=== PATIENT | female | born 1995 ===

== ENCOUNTER → 2021-10-05 13:26 | Outpatient (CLI) | payer OTHER, SELFPAY ==
--- NOTE | 2021-10-05 13:52 | DI.ECHO.S_ITS ---
:Reason For Study: CHEST PAIN : :Ordering Physician: CODEY : :PELON Performed By: Desiree Astudillo : :Referring: ZACKERY ALEGRE : + + Interpretation Summary The patient was in sinus rhythm with heart rates between 73-94 bpm during the exam. The left ventricle is normal in size and wall thickness. The ejection fraction is estimated to be 60-65%. No significant valvular disease Normal right sided pressures. No prior study for comparison. Procedure: A two-dimensional transthoracic echocardiogram with color flow and Doppler was performed. The study quality was technically good. There is no prior echocardiogram noted for this patient. The patient was in sinus rhythm with heart rates between 73-94 bpm during the exam. Left Ventricle: The left ventricle is normal in size and wall thickness. The ejection fraction is estimated to be 60-65%. Diastolic parameters suggest probable normal left ventricular diastolic function and normal filling pressures. Right Ventricle: The right ventricle is normal in size and function. Atria: The left atrial size is normal. Right atrial size is normal. There is no Doppler evidence for an interatrial shunt. Mitral Valve: The mitral valve is normal in structure and function. There is no mitral regurgitation noted. Aortic Valve: The aortic valve is trileaflet. The aortic valve opens well. There is no aortic valve stenosis. No aortic regurgitation is present. Tricuspid Valve: The tricuspid valve is normal in structure and function. There is trace tricuspid regurgitation. Pulmonic Valve: The pulmonic valve is not well seen, but is grossly normal. There is no pulmonic valvular regurgitation. Great Vessels: The aortic root is normal size. The dimensions of the ascending aorta are normal. The IVC is of normal diameter and collapses greater than 50% with a sniff. This suggests a low right atrial pressure of 3 mm Hg. Pericardium/ Pleura There is no pericardial effusion. There is no pleural effusion. MMode/2D Measurements & Calculations LVIDd: 4.0 cm LVOT diam: 1.9 cm LVIDs: 2.6 cm Ao root diam: 2.4 cm FS: 33.9 % asc Aorta Diam: 2.5 cm IVSd: 0.71 cm Ao Arch Diam (Prox Trans): 2.3 cm LVPWd: 0.76 cm LV sandoval. diameter/BSA (cm/m^2): 2.5 LV sys. diameter/BSA (cm/m^2): 1.7 LA A2 area: 16.1 cm2 RA long axis: 4.3 cm LA A4 area: 13.9 cm2 RA area: 11.2 cm2 LA length (vol): 4.5 cm RA vol: 24.9 ml LA vol: 42.1 ml RA : 15.6 ml/m2 LA vol index: 26.4 ml/m2 IVC diam: 1.1 cm RVD1 (basal): 3.3 cm RVD2 (mid): 3.0 cm TAPSE: 2.0 cm Doppler Measurements & Calculations Ao V2 max: 128.8 cm/sec LVOT Max Rian: 99.4 cm/sec Ao V2 mean: 93.6 cm/sec LV V1 max P.9 mmHg Ao max P.6 mmHg LV V1 VTI: 21.9 cm Ao mean P.0 mmHg TERA(I,D): 2.3 cm2 Ao V2 VTI: 26.0 cm TERA(V,D): 2.1 cm2 sev ratio: 0.84 TERA indexed to BSA (cm^2/m^2): 1.5 MV E max rian: 87.6 cm/sec PA V2 max: 95.1 cm/sec MV A max rian: 75.7 cm/sec PA V2 mean: 64.2 cm/sec MV E/A: 1.2 PA mean P.0 mmHg Med Peak E' Rian: 11.9 cm/sec PA pr(Accel): 25.9 mmHg E/E' med: 7.4 Lat Peak E' Rian: 18.5 cm/sec E/E' lat: 4.7 E/e' average: 6.1 MV dec time: 0.15 sec SV(LVOT): 60.4 ml Reading Physician:JUDITH
--- NOTE | 2021-10-05 15:24 | PM.TREADMILL ---
Cardiac Stress Test Report Referral & Results Date Patient Seen: 10/05/21 Time Patient Seen: 15:24 Requesting provider: Pelon Sebastian Indication: Chest pain Rest ECG: sinus rhythm Procedure Note: Standard Yonathan protocol, 8:02 mins, 8.1 METS Reduced exercise capacity, RYLAN +21% Accelerated heart rate response to minimal exertion. Normal hemodynamic response to exercise No chest pain or anginal symptoms. No significant ST changes at peak exercise No ectopy Test stopped due to leg fatigue and patient request to stop Impression: Normal exercise stress test Please note: Actual ECG tracings can be found in the PACS system.
--- NOTE | 2021-10-05 20:23 | DI.NM.S_ITS ---
DATE OF SERVICE: 10/05/2021 PROCEDURE PERFORMED: Exercise treadmill stress test without imaging. ORDERING PROVIDER: Dr. Pelon Sebastian. INDICATIONS: The patient is a 25-year-old female with atypical chest discomfort and palpitations. FINDINGS: 1. The patient was able to exercise for 8 minutes 2 seconds on a standard Yonathan protocol, suggesting moderately reduced exercise capacity with an RYLAN of +21%, achieving 10.1 METs. 2. She had a somewhat accelerated heart rate response to exercise with a resting heart rate of 91 BPM, increasing to 130 BPM after 3 minutes of exercise and achieving a maximum heart rate of 183 BPM (94% of her predicted maximum). She had a normal blood pressure response. 3. She had no chest discomfort or anginal symptoms and stopped because of generalized fatigued. 4. The resting ECG shows sinus rhythm with normal ST segments. With stress, there were no ST-segment shifts or arrhythmias. She had a gradual recovery of her sinus tachycardia in recovery. IMPRESSION: 1. Normal exercise treadmill stress test for ischemia. 2. Moderately impaired exercise capacity with an accelerated heart rate response to exercise but no angina or arrhythmias. Berenice Oneal - /fn/lc doc#: [id number]/job#: [id number] dd: 10/05/2021 16:27:00 dt: 10/05/2021 18:39:00 DICTATING MD/COPIES TO: Roger Wilkerson MD; Dr. Walker Sebastian COPIES MNE: ALISTAIR; ; Dr. Walker Sebastian
== END ==
PROVIDERS: PCP Family Medicine
DX: R07.89 Other chest pain (principal); R00.2 Palpitations
CPT/HCPCS: 93017; 93306

== ENCOUNTER 2021-10-07 18:57 | Emergency (ER) | payer OTHER, SELFPAY ==
[2021-10-07 18:59] VITALS: BP 135/76; PULSE 68; RESP 20; TEMP 36.6; O2SAT 98
== END 2021-10-07 21:20 | disposition left against medical advice (07) ==
PROVIDERS: Emergency Provider Emergency Medicine; PCP Family Medicine
CPT/HCPCS: 99281

== ENCOUNTER 2021-12-17 10:26 | Emergency (ER) | payer OTHER, SELFPAY ==
[2021-12-17 10:30] VITALS: BP 146/86; PULSE 60; RESP 15; TEMP 37.3; O2SAT 99; BMI 25.4
--- NOTE | 2021-12-17 10:33 | DI.RAD.S_ITS ---
PROCEDURE: XR CHEST 1V INDICATIONS: chest pain TECHNIQUE: One view of the chest was acquired. COMPARISON: None. FINDINGS: Surgical changes and devices: None. Lungs and pleura: Lungs are clear. No pleural effusions or pneumothorax. Mediastinum: Mediastinal contours appear normal. Heart size is normal. Bones and chest wall: No suspicious bony lesions. Overlying soft tissues appear unremarkable. IMPRESSION: No acute cardiopulmonary abnormality. Dictated by: Miguel Corral M.D. on 12/17/2021 at 11:11 Approved by: Miguel Corral M.D. on 12/17/2021 at 11:12
[2021-12-17 10:52] LABS: Add Manual Diff / Slide Review NO; Basophils Absolute Auto 0 /uL (0-100); Basophils Percent Auto 0.2 % (0-2); Eosinophils Absolute Auto 200 /uL (0-450); Eosinophils Percent Auto 1.7 % (2-4); Hematocrit 39.2 % (36-46); Hemoglobin 13.7 g/dL (12.0-16.0); Lymphocytes Absolute Auto 2300 /uL (1100-4500); Lymphocytes Percent Auto 23.2 % (25-40); Mean Corpuscular HGB Conc 34.9 % (30-36); Mean Corpuscular Hemoglobin 28.7 PG (26-34); Mean Corpuscular Volume 82.4 fL (80-100); Monocytes Absolute Auto 600 /uL (0-900); Monocytes Percent Auto 6.5 % (3-14); Neutrophils Absolute Auto 6700 /uL (1500-7000); Neutrophils Percent Auto 68.4 % (50-75); Platelet Count 191 X10^3/uL (150-400); Red Blood Cell Count 4.76 X10^6/uL (4.0-5.2); Red Cell Distribution Width 12.8 % (11.6-14.8); White Blood Cell Count 9.8 X10^3/uL (4.5-11.0)
[2021-12-17 11:11] VITALS: PULSE 79; RESP 24; O2SAT 100
[2021-12-17 11:19] LABS: HCG Quantitative /Beta subunit < 2.4 mIU/mL
[2021-12-17 11:27] VITALS: BP 119/70; PULSE 64; RESP 20; O2SAT 100
[2021-12-17 11:30] VITALS: BP 111/64; PULSE 59; RESP 21; O2SAT 100
--- NOTE | 2021-12-17 11:35 | ED.CHESTPAIN ---
HPI - Chest Pain General Chief Complaint: Chest Pain Stated Complaint: SOB, chest tightness x 3 days Time Seen by Provider: 12/17/21 11:33 Source: patient Mode of arrival: Ambulatory Limitations: no limitations History of Present Illness HPI narrative: Patient is a 26-year-old female history of paroxysmal supraventricular tachycardia taking metoprolol. Presents today with increased fatigue some left-sided chest discomfort and arm pain. She that part before. However she is having she breath which is new. She has some mild shortness breath with exertion. She denies any orthopnea. No fever or cough. Been ongoing for the last 3 days. She says it is just not getting any better. Related Data Allergies Allergy/AdvReac Type Severity Reaction Status Date / Time No Known Drug Allergies Allergy Verified 12/17/21 10:34 Review of Systems Review of Systems Narrative: GENERAL: Denies chills, fatigue, malaise, fever, sweats, travel HEENT: Denies sinus pain, ear pain, sore throat, difficulty swallowing, neck pain RESPIRATORY: See HPI CARDIOVASCULAR: See HPI GASTROINTESTINAL: Denies nausea, vomiting, abdominal pain, diarrhea, constipation, melena. : Denies dysuria, frequency, incontinence, hematuria, urinary retention, flank pain. MUSCULOSKELETAL: Denies weakness, joint pain, or bony pain SKIN: No rash, no erythema, no pruritus NEUROLOGIC: Denies weakness, dizziness, headache, numbness, change in speech, confusion PSYCHIATRIC: No concerning psychosocial issues. 12 point review of systems is negative except for those stated above and HPI Patient History Social History Smoking Status: Unknown if ever smoked Smoking Status: Unknown if ever smoked alcohol intake frequency: holidays/special occasions only Substance Use Type: does not use Exam Initial Vital Signs Initial Vital Signs: Vital Signs Temperature 99.2 F 12/17/21 10:30 Pulse Rate 60 12/17/21 10:30 Respiratory Rate 15 12/17/21 10:30 Blood Pressure 146/86 H 12/17/21 10:30 Pulse Oximetry 99 12/17/21 10:30 Oxygen Delivery Method 12/17/21 10:30 GENERAL: Alert pleasant 26-year-old female no acute distress HEENT: Head atraumatic,EOMI, pupils reactive, face symmetric, moist mucous membranes CARDIOVASCULAR: Regular rate and rhythm without murmurs, rubs or gallops. RESPIRATORY: Breath sounds equal bilaterally, no wheezes rales or rhonchi. ABDOMEN: Soft, nontender. Normoactive bowel sounds all 4 quadrants. No guarding or rebound. EXTREMITIES: Normal range of motion, no clubbing or edema. Neurovascularly intact NEUROLOGICAL: Alert and oriented x4.Normal gait and speech. SKIN: Warm, dry, no laceration, no petechiae, no rashes or lesions. Scores HEART Score Heart Score history: Slightly Suspicious Heart Score EKG: Normal Heart Score Age: < 45 years old Heart Score risk factors: No known risk factors Heart Score troponin: < or = to normal limit Heart Score Total: 0 PERC Score Age greater than or equal to 50 years: No Heart rate greater than or equal to 100 bpm: No Room Air O2 Sat less than 95%: No Unilateral leg swelling: No Recent trauma or surgery: No Hemoptysis: No Prior PE or DVT: No Hormone Use: No Total PERC Score: 0 Course Orders Ordered: ED Orders 12/17/21 10:33 XR chest 1V Stat Beta HCG, Quant [HCG Quantitative /Beta subunit] Stat Complete Blood Count AUTO DIFF Stat Comprehensive Metabolic Panel Stat D Dimer Stat Lipase Stat Magnesium Stat Troponin & CK Cardiac Panel Stat 12/17/21 10:39 EKG-12 Lead Stat Vital Signs Vital signs: Vital Signs - 8 hr 12/17/21 10:30 Temperature 99.2 F Pulse Rate 60 Respiratory Rate 15 Blood Pressure 146/86 H Pulse Oximetry 99 Oxygen Delivery Method Room Air MDM - Chest Pain Lab Data Result diagrams: 12/17/21 10:33 12/17/21 10:33 Labs: Lab Results 12/17/21 12/17/21 12/17/21 Range/Units 10:33 10:33 10:33 WBC 9.8 (4.5-11.0) X10^3/uL RBC 4.76 (4.0-5.2) X10^6/uL Hgb 13.7 (12.0-16.0) g/dL Hct 39.2 (36-46) % MCV 82.4 (80-100) fL MCH 28.7 (26-34) PG MCHC 34.9 (30-36) % RDW 12.8 (11.6-14.8) % Plt Count 191 (150-400) X10^3/uL Neut % (Auto) 68.4 (50-75) % Lymph % (Auto) 23.2 L (25-40) % Camp % (Auto) 6.5 (3-14) % Eos % (Auto) 1.7 L (2-4) % Baso % (Auto) 0.2 (0-2) % Neut # (Auto) 6700 (2524-7764) /uL Lymph # (Auto) 2300 (4751-6779) /uL Camp # (Auto) 600 (0-900) /uL Eos # (Auto) 200 (0-450) /uL Baso # (Auto) 0 (0-100) /uL D-Dimer (<500) ng/ml Sodium 137 (137-145) mmol/L Potassium 4.1 (3.4-5.1) mmol/L Chloride 105 (98-107) mmol/L Carbon Dioxide 23 (22-32) mmol/L BUN 12 (7-17) mg/dL Creatinine 0.61 (0.52-1.04) mg/dL Estimated GFR > 60 (>60) mL/min BUN/Creatinine Ratio 19.7 (6-22) Glucose 117 H (70-100) mg/dL Calcium 8.9 (8.4-10.2) mg/dL Magnesium 1.9 (1.6-2.3) mg/dL Total Bilirubin 0.6 (0.2-1.3) mg/dL AST 35 (14-36) IU/L ALT 39 H (<35) IU/L Alkaline Phosphatase 56 (38-126) U/L Total Creatine Kinase 52 (30-135) U/L CK-MB (CK-2) TNP CK-MB (CK-2) Rel Index TNP Troponin I < 0.012 (0.01-0.034) ng/mL Total Protein 7.6 (6.3-8.2) g/dL Albumin 4.4 (3.5-5.0) g/dL Globulin 3.2 (1.7-4.1) g/dL Albumin/Globulin Ratio 1.4 (1.0-2.8) Lipase 45 (23-300) U/L HCG, Quant < 2.4 mIU/mL 12/17/21 Range/Units 10:33 WBC (4.5-11.0) X10^3/uL RBC (4.0-5.2) X10^6/uL Hgb (12.0-16.0) g/dL Hct (36-46) % MCV (80-100) fL MCH (26-34) PG MCHC (30-36) % RDW (11.6-14.8) % Plt Count (150-400) X10^3/uL Neut % (Auto) (50-75) % Lymph % (Auto) (25-40) % Camp % (Auto) (3-14) % Eos % (Auto) (2-4) % Baso % (Auto) (0-2) % Neut # (Auto) (9946-0974) /uL Lymph # (Auto) (5717-3009) /uL Camp # (Auto) (0-900) /uL Eos # (Auto) (0-450) /uL Baso # (Auto) (0-100) /uL D-Dimer < 500 (<500) ng/ml Sodium (137-145) mmol/L Potassium (3.4-5.1) mmol/L Chloride (98-107) mmol/L Carbon Dioxide (22-32) mmol/L BUN (7-17) mg/dL Creatinine (0.52-1.04) mg/dL Estimated GFR (>60) mL/min BUN/Creatinine Ratio (6-22) Glucose (70-100) mg/dL Calcium (8.4-10.2) mg/dL Magnesium (1.6-2.3) mg/dL Total Bilirubin (0.2-1.3) mg/dL AST (14-36) IU/L ALT (<35) IU/L Alkaline Phosphatase (38-126) U/L Total Creatine Kinase (30-135) U/L CK-MB (CK-2) CK-MB (CK-2) Rel Index Troponin I (0.01-0.034) ng/mL Total Protein (6.3-8.2) g/dL Albumin (3.5-5.0) g/dL Globulin (1.7-4.1) g/dL Albumin/Globulin Ratio (1.0-2.8) Lipase (23-300) U/L HCG, Quant mIU/mL Point of Care Testing Test Results Negative Imaging Data Chest x-ray: Radiologist's Impression: Signed Patient: Berenice Oneal MR#: [id number] : 1995 Acct:[id number] Age/Sex: 26 / F Date of Service: 12/17/21 Loc: ED Accession Number: [id number] ?? Procedure: XR chest 1V Ordering Provider: Micheline Verduzco D.O. PROCEDURE:? XR CHEST 1V ? INDICATIONS:? chest pain ? TECHNIQUE:? One view of the chest was acquired.? ? COMPARISON:? None. ? FINDINGS:? ? Surgical changes and devices:? None.? ? Lungs and pleura:? Lungs are clear.? No pleural effusions or pneumothorax.? ? Mediastinum:? Mediastinal contours appear normal.? Heart size is normal.? ? Bones and chest wall:? No suspicious bony lesions.? Overlying soft tissues appear unremarkable.? ? IMPRESSION:? No acute cardiopulmonary abnormality. ? ? Dictated by: Miguel Corral M.D. on 12/17/2021 at 11:11 ? ? ECG Data Interpretation: Sinus rhythm rate 59 NM intervals 174 QRS [address] changes no priors to compare MDM Narrative Medical decision making narrative: Patient overall appears well blood work is reassuring. D-dimer and troponin are negative. She does have some PVCs on the monitor but does appear to be in sinus. No need for any further workup she can follow up with her power and recovery superintendent. Discharge Plan Departure Patient Disposition: Home Clinical Impression: Atypical chest pain Instructions: DI for Atypical Chest Pain Activity Restrictions/Additional Instructions: *You have been diagnosed with atypical chest pain, palpitation *What to do: At this time emergency department workup is negative. Please follow-up with her power and recovery superintendent and primary care provider *Continue to take medications as directed *Follow up with your primary care provider in 2-3 days or call [phone] *Return to ER if you should have increasing palpitations chest pain shortness of breath or any new, worsening or concerning symptoms Referrals: Roger Urena MD [Primary Care Provider] - Visit Report Forms: Patient Portal/API
[2021-12-17 11:58] LABS: D Dimer < 500 ng/ml (<500)
[2021-12-17 12:00] VITALS: BP 107/66; PULSE 69; RESP 21; O2SAT 100
[2021-12-17 12:07] LABS: Alanine Aminotransferase 39 IU/L (<35); Albumin 4.4 g/dL (3.5-5.0); Albumin Globulin Ratio 1.4 (1.0-2.8); Alkaline Phosphatase 56 U/L (38-126); Aspartate Aminotransferase 35 IU/L (14-36); BUN Creatinine Ratio 19.7 (6-22); Bilirubin Total 0.6 mg/dL (0.2-1.3); Blood Urea Nitrogen 12 mg/dL (7-17); Calcium 8.9 mg/dL (8.4-10.2); Carbon Dioxide 23 mmol/L (22-32); Chloride 105 mmol/L (98-107); Creatine Kinase 52 U/L (30-135); Estimated Glomerular Filt Rate > 60 mL/min (>60); Globulin 3.2 g/dL (1.7-4.1); Glucose 117 mg/dL (70-100); HEMOLYSIS 16 (0-50); Lipase 45 U/L (23-300); Magnesium 1.9 mg/dL (1.6-2.3); Potassium 4.1 mmol/L (3.4-5.1); Sodium 137 mmol/L (137-145); Total Protein 7.6 g/dL (6.3-8.2)
[2021-12-17 12:19] LABS: Troponin I < 0.012 ng/mL (0.01-0.034)
[2021-12-17 12:30] VITALS: BP 103/61; PULSE 65; RESP 20; O2SAT 99
== END 2021-12-17 12:43 | disposition home or self-care (01) ==
PROVIDERS: Emergency Provider Emergency Medicine; PCP Family Medicine
DX: R07.89 Other chest pain (principal)
CPT/HCPCS: 36415; 71045; 80053; 81025; 82550; 83690; 83735; 84484; 84702; 85025; 85379; 93005; 93010; 99283; 99284